=== PATIENT | female | born 1960 | race Caucasian/White ===

== ENCOUNTER → 2022-10-10 | Outpatient (CLI) | payer BC | LOC: MC.RAD 10:50 | DX: N63.10 Unspecified lump in the right breast, unspecified quadrant (principal) ==

== ENCOUNTER 2024-03-15 10:16 | Day surgery (SDC) | payer BC ==
[~2024-03-15] VITALS: Ht 154.9 cm; Wt 90.4 kg
[2024-03-15] VITALS (11 sets, daily range): BP systolic 112–141; BP diastolic 64–76; PULSE 68–88; TEMP 97–98.1
[~2024-03-15 10:16] MED LIST: LR 1,000 ML IV SCH; Meclizine 25 MG TAB PO SCH; Metoclopramide 10 MG TAB PO SCH
[2024-03-15] MEDS ORDERED: fentaNYL 50 MCG/ML 5 ML VIAL ONE (11:19)
[2024-03-15] MEDS ORDERED: Lidocaine PF 2% (20 MG/ML) 5 ML VIAL ONE (11:20)
[2024-03-15] MEDS ORDERED: Rocuronium 50 MG/5 ML Multi-Dose VIAL ONE (11:20)
[2024-03-15] MEDS ORDERED: NEURONTIN600 MG/TAB PO (11:31)
[2024-03-15] MEDS ORDERED: AMITRIPTYLINE H50 M1 PO (11:31)
[2024-03-15] MEDS ORDERED: HCTZ 25MG TAB25 MG PO (11:32)
[2024-03-15] MEDS ORDERED: ZOCOR 20MG20 MG PO (11:32)
[2024-03-15] MEDS ORDERED: PROTONIX 40MG T40 MG PO (11:32)
[2024-03-15] MEDS ORDERED: dexAMETHasone 10 MG/ML VIAL ONE (12:55)
[2024-03-15] MEDS ORDERED: Ondansetron 4 MG/2 ML VIAL ONE (12:55)
[2024-03-15] MEDS ORDERED: Topical Skin Adhesive 1 EACH (1 ML) TOP ONE (13:21)
[2024-03-15] MEDS ORDERED: Morphine 2 MG/1 ML VIAL [PACU/SDC ONLY] IV PRN (13:30)
[2024-03-15] MEDS ORDERED: fentaNYL 50 MCG/ML 1 ML SYRINGE/VIAL [PACU/SDC ONLY] IV PRN (13:30)
[2024-03-15] MEDS ORDERED: Ondansetron 4 MG/2 ML VIAL IV PRN ×2 (13:30→14:45)
[2024-03-15] MEDS ORDERED: HYDROmorphone 1 MG/1 ML SYRINGE [PACU/SDC ONLY] IV PRN (13:30)
[2024-03-15] MEDS ORDERED: droPERidol 2.5 MG/ML 2 ML VIAL IV PRN (13:30)
[2024-03-15] MEDS ORDERED: Glycopyrrolate 0.2 MG/ML 1 ML VIAL ONE (13:58)
[2024-03-15] MEDS ORDERED: Neostigmine 1 MG/ML 10 ML Multi-Dose Vial ONE (13:58)
[2024-03-15] MEDS ORDERED: HYDROmorphone 0.5 MG/0.5 ML SYRINGE IV PRN (14:45)
[2024-03-15] MEDS ORDERED: Naloxone 0.4 MG/ML VIAL IV PRN (14:45)
[2024-03-15] MEDS ORDERED: HYDROmorphone 2 MG TAB PO PRN (14:45)
[2024-03-15] MEDS ORDERED: LR 1,000 ML IV SCH (14:45)
--- NOTE | 2024-03-15 15:53 | NUR ---
PT ARRIVED VIA BED TO ROOM 350. SHIFT ASSESSMENT COMPLETED AT THIS TIME. PT DROWSY BUT A&0X4. AT BEDSIDE. PT REPORTS 5/10 PAIN IN THE CHEST BUT STATES IT IS TOLERABLE. POST UP VS STABLE- SEE FLOWSHEET. 6 INSCIONS ON ABDOMEN APPPEAR CLEAN, DRY AND INTACT WITH SKIN GLUE. BED IN LOWEST POSITION, CALL LIGHT WITHIN REACH.
--- NOTE | 2024-03-15 20:54 | NUR ---
PATIENT IS RESTING IN BED WATCHING TV. TOLERATING ORAL INTAKE WELL BUT DOES CONTINUE TO REPORT PAIN IN BOTH SHOULDERS AND HER STERNUM WHICH SHE DESCRIBES SIMILAR TO HER GAS PAIN SHE EXPERIENCED EARLIER. DENIES ANY SHORTNESS OF BREATH OR NAUSEA. CALL LIGHT IS WITHIN REACH. BED IS LOCKED AND IN LOW POSITION.
[2024-03-15] MEDS ORDERED: Celecoxib 200 MG CAP PO SCH (21:00)
[2024-03-16] VITALS (8 sets, daily range): BP systolic 106–126; BP diastolic 58–74; PULSE 73–85; TEMP 97.8–98.5
[2024-03-16 06:29] LABS: BASO % 0.1 % (0.0-2.0); GRAN % 85.1 % (42.2-75.2); HEMATOCRIT 35.9 % (37.0-47.0); HEMOGLOBIN 12.5 g/dl (12.5-16.0); LYMPH # 1.6 K/mm3 (1.2-3.4); MEAN CELL VOLUME 88 fl (80.0-100.0); MEAN CORPUSCULAR HEMOGLOBIN 31 pg (27-31); MEAN CORPUSCULAR HGB CONC 35 g/dl (33.0-37.0); MEAN PLATELET VOLUME 9.9 fl (7.4-10.4); MONO # 0.5 K/mm3 (0.1-0.6); MONO % 3.6 % (1.7-9.3); PLATELET COUNT 282 K/mm3 (130-400); RED BLOOD COUNT 4.08 M/mm3 (4.10-5.30); REDCELL DISTRIBUTION WIDTH-CV 12.9 % (11.5-14.5)
[2024-03-16 06:50] LABS: CREATININE, serum 0.87 mg/dL (0.57-1.11); MAGNESIUM 1.6 mg/dL (1.6-2.6); PHOSPHOROUS 2.5 mg/dL (2.3-4.7); POTASSIUM 3.9 mEq/L (3.5-4.5)
[2024-03-16] MEDS ORDERED: Amitriptyline 50 MG TAB PO SCH (08:55)
[2024-03-16] MEDS ORDERED: Simvastatin 20 MG **** subs to Atorvastatin 10 MG PO SCH (08:55)
[2024-03-16] MEDS ORDERED: Gabapentin 300 MG CAP PO SCH (09:00)
[2024-03-16] MEDS ORDERED: hydroCHLOROthiazide 25 MG TAB PO SCH (09:00)
--- NOTE | 2024-03-16 09:00 | NUR ---
SHIFT ASSESSMENT COMPLETE. VSS. PATIENT RESTING IN BED. THIS NURSE ADVISED PATIENT TO MAKE SURE SHE IS GETTING UP AND WALKING TO HELP DECREASE GAS BUILD UP AND RELEIVE LEFT SHOULDER PAIN, PATIENT AGREED. PATIENT STATES SOME PAIN /. PATIENT HAS NO OTHER NEEDS AT THIS TIME. ALL MORNING MEDS GIVEN PER ORDERS. CALL LIGHT IN REACH.
[2024-03-16] MEDS ORDERED: CELEBREX 200MG200 MG PO (09:54)
[2024-03-16] MEDS ORDERED: DILAUDID 2MG TAB2 MG PO (09:54)
--- NOTE | 2024-03-16 12:14 | NUR ---
Data: Patient accepted spiritual care visit offered during [employer] Officer rounds. Patient reflected on her life both in [place] and since moving to [place]. Patient expects to be discharged this afternoon. Assessment: Time in hospital has offered Patient the opportunity to reflect upon her life and beliefs. Plan of Care: [employer] Officer provided supportive listening; conversation about shared interests and opportunities in life; and prayer. Patient thanked [employer] Officer for the visit. Chaplains will remain available as needed/requested while Patient is admitted to this hospital.
--- NOTE | 2024-03-16 12:29 | NUR ---
Take Away Man met with patient to discuss discharge planning. Patient lives in [place] with her , Matt (ph#[phone]) and sees Dr. Mia Wheeler for primary care. Patient gets medications from [facility] in with no difficulties. Patient does not normally use any DME and is independent with [employer], including driving. Patient stated her insurance is through her 's employer. Patient does not have DPOA-HC at this time but was interested in taking home the form, which MALENA provided. Discharge Plan: Home
[2024-03-16] MEDS ORDERED: Atorvastatin 10 MG TAB PO SCH (21:00)
== END 2024-03-16 14:46 | disposition home or self-care (01) ==
LOC: SDCO 10:16 → SURG 15:48 → SDCO 03-16 14:46
PROVIDERS: Surgery
DX: K44.9 Diaphragmatic hernia without obstruction or gangrene (principal); K21.9 Gastro-esophageal reflux disease without esophagitis; R07.9 Chest pain, unspecified; E78.5 Hyperlipidemia, unspecified; Z79.899 Other long term (current) drug therapy
CPT/HCPCS: OP; A9284; C1781; J0690; J1100; J1170; J1650; J1790; J1920; J2405; J2704; J2710; J3010; J7120